=== PATIENT | female | born 1955 | race Caucasian/White ===

== ENCOUNTER 2017-01-21 06:58 | Day surgery (SDC) | payer BC ==
[2017-01-21 07:52] VITALS: BMI 23.9
[2017-01-21] MEDS ORDERED: PROPOFOL 20 ML ONE ×3 (07:59)
[2017-01-21] MEDS ORDERED: LIDOCAINE HCL 2% (20ML MULTI-DOSE VIAL) NR ONE (07:59)
[2017-01-21 09:12] VITALS: TEMP 97.9
[2017-01-21 10:00] VITALS: BP 151/68; PULSE 67
--- NOTE | 2017-01-22 13:30 | PATH ---
Surgical Pathology Report Patient Name: ALFREDO GROVER [facility]. Rec. #: [id number] /Age/Gender: 1955 (Age: 61) / F Account: [id number] Location: [facility]-ENDOSCOPY Taken: 01/21/2017 Received: 01/21/2017 Reported: 01/22/2017 Physicians: Philip Card M.D. Specimen(s) Received A: BX BILROTH II ANASTOMOSIS SITE B: BX AFFERENT ULCERATION C: BX GASTRIC POUCH D: POLYP DESCENDING COLON E: BX PROXIMAL TRANSVERSE COLON POLYPS F: BX DISTAL TRANSVERSE COLON POLYP G: SIGMOID COLON POLYPS H: BX RECTAL POLYPS Clinical History History of polyp, epigastric pain Gastric ulcer, Billroth II anastomosis ulcer, bowel reflux gastritis, multiple colon polyps, diverticulosis, patent colonic anastomosis Final Diagnosis A. BILROTH II ANASTOMOSIS SITE, BIOPSY: BENIGN GASTRIC MUCOSA WITH MILD CHRONIC GASTRITIS AND REACTIVE GASTROPATHY-TYPE CHANGES. NEGATIVE FOR DYSPLASIA. IMMUNOSTAIN FOR H. PYLORI IS NEGATIVE FOR ORGANISMS. B. AFFERENT ULCERATION, BIOPSY: BENIGN SMALL BOWEL MUCOSA WITH CHRONIC INFLAMMATION AND FOCAL SURFACE ULCERATION. NEGATIVE FOR DYSPLASIA. NO HISTOLOGIC EVIDENCE OF GLUTEN SENSITIVE ENTEROPATHY (CELIAC DISEASE). C. GASTRIC POUCH, BIOPSY: GASTRIC OXYNTIC MUCOSA WITH MILD CHRONIC GASTRITIS. IMMUNOSTAIN FOR H. PYLORI IS NEGATIVE FOR ORGANISMS. D. COLON, DESCENDING, POLYP, POLYPECTOMY: SESSILE SERRATED ADENOMA WITH CAUTERY ARTIFACT. E. COLON, PROXIMAL TRANSVERSE, POLYPS, BIOPSY: FRAGMENTS OF TUBULAR ADENOMAS. F. COLON, DISTAL TRANSVERSE, POLYP, BIOPSY: TUBULAR ADENOMA. G. COLON, SIGMOID, POLYPS, BIOPSY AND POLYPECTOMY: HYPERPLASTIC POLYPS. H. RECTUM, POLYP, BIOPSY: HYPERPLASTIC POLYP. Electronically Signed Sourav Soto M.D. Gross Description A. Received in formalin, labeled "biopsy Billroth 2 anastomosis site" are 6 collado, irregular portions of soft tissue ranging from 0.1-0.4 cm in greatest dimension. The specimens are submitted in toto in one cassette. B. Received in formalin, labeled "biopsy afferent ulceration" is a collado, irregular portion of soft tissue measuring 0.3 cm in greatest dimension. The specimen is submitted in toto in one cassette. C. Received in formalin, labeled "biopsy gastric pouch" is a collado, irregular portion of soft tissue measuring 0.3 cm in greatest dimension. The specimen is submitted in toto in one cassette. D. Received in formalin, labeled "descending colon polyp" is a collado, polypoid portion of soft tissue measuring 0.5 cm in greatest dimension. The specimen is submitted in toto in one cassette. E. Received in formalin, labeled "biopsy proximal transverse colon polyp" are 2 collado, irregular portions of soft tissue averaging 0.3 cm in greatest dimension. The specimens are submitted in toto in one cassette. F. Received in formalin, labeled "biopsy distal transverse colon polyp" are 2 collado, irregular portions of soft tissue measuring 0.2 and 0.3 cm in greatest dimension. The specimens are submitted in toto in one cassette. G. Received in formalin, labeled "sigmoid colon polyps" are 6 collado, irregular portions of soft tissue ranging from 0.1-0.4 cm in greatest dimension. The specimens are submitted in toto in one cassette. H. Received in formalin, labeled "biopsy rectal polyps" is a collado, irregular portion of soft tissue measuring 0.3 cm in greatest dimension. The specimen is submitted in toto in one cassette. 01/21/2017 [facility]01/21/2017
== END 2017-01-21 10:05 | disposition home or self-care (01) ==
LOC: JASU-ENDO 06:58
PROVIDERS: ATTEND Internal Medicine Gastroenterology
PROC: 0DBN8ZX Excision of Sigmoid Colon, Via Natural or Artificial Opening Endoscopic, Diagnostic (ICD-10-PCS; 2017-01-21)
PROC: 0DBL8ZX Excision of Transverse Colon, Via Natural or Artificial Opening Endoscopic, Diagnostic (ICD-10-PCS; 2017-01-21)
PROC: 0DBP8ZX Excision of Rectum, Via Natural or Artificial Opening Endoscopic, Diagnostic (ICD-10-PCS; 2017-01-21)
PROC: 0DB68ZX Excision of Stomach, Via Natural or Artificial Opening Endoscopic, Diagnostic (ICD-10-PCS; 2017-01-21)
PROC: 0DBM8ZX Excision of Descending Colon, Via Natural or Artificial Opening Endoscopic, Diagnostic (ICD-10-PCS; principal; 2017-01-21 08:00)
DX: Z12.11 Encounter for screening for malignant neoplasm of colon (principal); Z86.010 Personal history of colon polyps; R10.13 Epigastric pain; D12.4 Benign neoplasm of descending colon; D12.3 Benign neoplasm of transverse colon; D12.5 Benign neoplasm of sigmoid colon; K62.1 Rectal polyp; K57.30 Diverticulosis of large intestine without perforation or abscess without bleeding; Z98.0 Intestinal bypass and anastomosis status; K25.9 Gastric ulcer, unspecified as acute or chronic, without hemorrhage or perforation; K29.70 Gastritis, unspecified, without bleeding
CPT/HCPCS: 88305-TC; 88342-TC

== ENCOUNTER 2020-02-22 10:20 | Day surgery (SDC) | payer OTHER, BC ==
--- NOTE | 2020-02-07 09:27 | HP ---
DATE OF ADMISSION: 02/29/2020 HISTORY: This is a 64-year-old woman who over the past couple years has noticed an enlarging soft tissue mass involving the right upper back. She has no symptoms other than the mere presence of the mass itself that bothers her. Nonetheless, she presents at this time for excision of the soft tissue mass. PAST MEDICAL HISTORY: Significant for GERD. No history of heart disease, hypertension, diabetes, respiratory, renal or hepatic insufficiency. PAST SURGICAL HISTORY: Significant for back surgery. ALLERGIES: No known medication allergies. CURRENT MEDICATIONS: Amlodipine, Zoloft, baby aspirin. SOCIAL HISTORY: Positive for tobacco/not quantified. Occasional alcohol/not quantified. FAMILY HISTORY: Nil. REVIEW OF SYSTEMS: Nil otherwise. PHYSICAL EXAMINATION: On examination the patient has a 5 x 5 cm soft tissue mass overlying the upper right back. The mass appears to be confined to the subcutaneous space but slightly in its deeper plane. There are no satellite lesions. There is no visual lymphadenopathy. IMPRESSION: Soft tissue mass, right upper back. PLAN: Excision, soft tissue mass, right upper back. Indications, alternatives and possible complications were reviewed. Consent obtained. The patient will be seen preoperatively by Dr. Chavez. Please refer to his notes for those medical details. BANDAR OCONNOR M.D. MATTHEW/[id number] CC: José Chavez MD MTDD
[2020-02-15 10:46] VITALS: BMI 28.1
[2020-02-22] MEDS ORDERED: MIDAZOLAM HCL 2 MG/2 ML SINGLE DOSE VIAL ONE ×2 (12:20→12:47)
[2020-02-22] MEDS ORDERED: LIDOCAINE 1%/EPI 1:100000 (20 ML MULTI DOSE VIAL) ONE ×2 (12:27→12:39)
[2020-02-22] MEDS ORDERED: LIDOCAINE 1%/EPI 1:100000 (50 ML MULTI DOSE VIAL) INF ONE (12:53)
[2020-02-22 13:30] VITALS: BP 130/75; PULSE 71
[2020-02-22 14:45] VITALS: TEMP 98
--- NOTE | 2020-02-22 21:01 | OP ---
DATE OF OPERATION: 02/22/2020 PREOPERATIVE DIAGNOSIS: Soft tissue mass, right upper back. POSTOPERATIVE DIAGNOSIS: Soft tissue mass, right upper back (pathology pending). PROCEDURE: Excision subfascial soft tissue neoplasia right upper back/intermediate wound closure (5 cm). OPERATING SURGEON: John Valencia MD. ANESTHESIOLOGIST: Kenyon Silverio MD. ANESTHESIA: Local/MAC, 1% lidocaine with epinephrine. HISTORY: This is a 65-year-old woman who presents with an enlarging soft tissue mass of the right upper back. Indications, alternatives, possible complications of the intended procedure reviewed. DESCRIPTION OF PROCEDURE: With the patient in the prone position, the right upper back was prepped and draped in sterile fashion using Betadine. 1% lidocaine with epinephrine was used to infiltrate the soft tissue at the intended level of the excision along with IV sedation administered as per anesthesiologist. 5 cm transverse incision was made directly over the mass and deepened into the subcutaneous space. In the subcutaneous space, a somewhat ill defined lobulated soft tissue lipomatous neoplasia was encountered. It was freed from its attachment to the surrounding subcutaneous tissues. With meticulous dissection, the small lobular extensions were from the mid subcutaneous fat and delivered with the specimen. In the deeper plane, the specimen was noted to be emanating some of the fibers of the underlying musculature. The intermuscular portion of the mass was teased from the muscle fibers and ultimately delivered without further disruption of the fibers themselves. After delivery of the subfascial neoplasia, the wound was inspected, and adequate hemostasis insured. The fascia of the underlying musculature was closed using interrupted 3-0 chromic sutures. Subcutaneous space was closed using subcuticular 3-0 chromic sutures. Skin edges were approximated using subcuticular 3-0 chromic sutures. Benzoin and Steri-Strips applied. Dressing applied. Procedure terminated. Needle, instrument counts were correct. Estimated blood loss minimal. Specimen subfascial soft tissue neoplasia, right upper back. Patient tolerated procedure. Procedure was terminated. JOHN VALENCIA M.D. [id number] MTDD
--- NOTE | 2020-02-24 17:27 | PATH ---
Surgical Pathology Report Patient Name: ALFREDO GROVER [facility]. Rec. #: [id number] /Age/Gender: 1955 (Age: 65) / F Account: [id number] Location: [facility] AMBULATORY Taken: 02/22/2020 Received: 02/22/2020 Reported: 02/24/2020 Physicians: John Valencia M.D. Specimen(s) Received RIGHT UPPER BACK SOFT TISSUE MASS/LIPOMA Clinical History Benign neoplasm of connective and other soft tissue Final Diagnosis SOFT TISSUE MASS/LIPOMA, UPPER BACK, RIGHT, EXCISION: MATURE FIBROADIPOSE TISSUE CONSISTENT WITH LIPOMA. Electronically Signed Edwige Pedro M.D. Gross Description Received in formalin labeled "soft tissue mass/lipoma right upper back" is a piece of yellow, lobulated, fibroadipose tissue measuring 5.5 x 4 x 1 cm. Cut section is yellow and homogenous. No areas of hemorrhage or necrosis identified. Cutter Out sections are submitted in one cassette. GALILEA/02/23/2020 leeroy/02/23/2020
== END 2020-02-22 14:15 | disposition home or self-care (01) ==
LOC: FASU 10:20
PROVIDERS: ATTEND Surgery
PROC: 0KBF0ZZ Excision of Right Trunk Muscle, Open Approach (ICD-10-PCS; principal; 2020-02-22 12:50)
DX: D21.6 Benign neoplasm of connective and other soft tissue of trunk, unspecified (principal)
CPT/HCPCS: 88304-TC; 94760

== ENCOUNTER 2023-03-15 17:11 | Inpatient (IN) | payer OTHER, BC ==
[2023-03-15] MEDS ORDERED: PANTOPRAZOLE SODIUM 40 MG VIAL IVPUSH ONE (20:09)
[2023-03-15] MEDS ORDERED: LACTATED RINGERS SOLUTION 1000 ML INFUS.BAG IV ONE ×2 (20:15→22:30)
[2023-03-15 20:40] LABS: BASO % 0.5 % (0-2.0); EOS % 0.4 % (0-4.5); HEMATOCRIT 31.5 % (32.4-45.2); HEMOGLOBIN 10.6 GM/dL (10.7-15.3); LYMPH % 24.2 % (8-40); MCH 32.2 pg (25.7-33.7); MCHC 33.7 g/dl (32.0-36.0); MEAN CELL VOLUME 95.3 fl (80-96); MEAN PLT VOLUME 9.7 fl (7.5-11.1); MONO % 6.9 % (3.8-10.2); PLATELET COUNT 235 10^3/uL (134-434); RBC 3.31 M/mm3 (3.60-5.2); RDW 13.1 % (11.6-15.6)
[2023-03-15 20:46] LABS: INR 0.98 (0.83-1.09); PROTHROMBIN TIME (PATIENT) 11.4 SEC (9.7-13.0)
[2023-03-15 20:49] LABS: ACTIVATED PTT 25.7 SECONDS (25.2-36.5)
[2023-03-15 21:00] LABS: POTASSIUM 4.3 mmol/L (3.5-5.1)
[2023-03-15 21:02] LABS: CALCIUM 8.2 mg/dL (8.5-10.1)
[2023-03-15 21:03] LABS: ALBUMIN 3.6 g/dl (3.4-5.0)
[2023-03-15] MEDS ORDERED: PANTOPRAZOLE SODIUM 40 MG VIAL ONE (21:05)
[2023-03-15 21:06] LABS: CREATININE 0.5 mg/dL (0.55-1.3)
[2023-03-15 21:07] LABS: BILIRUBIN,TOTAL 0.4 mg/dL (0.2-1)
[2023-03-15 21:39] LABS: EPI CELLS 28 /uL (0-25.1); HYALINE CASTS 0 /uL (0-3.1); PH,URINE 5.5 (5.0-8.0); URINE APPEARANCE CLEAR; URINE BACTERIA 4275 /uL (0-1359); URINE BILIRUBIN NEGATIVE (NEGATIVE); URINE COLOR YELLOW; URINE GLUCOSE (UA) NEGATIVE (NEGATIVE); URINE KETONE TRACE (NEGATIVE); URINE LEUK ESTERASE 1+ (NEGATIVE); URINE NITRITE POSITIVE (NEGATIVE); URINE PROTEIN NEGATIVE (NEGATIVE); URINE RBC 8 /uL (0-23.9); URINE UROBILINOGEN 0.2 mg/dL (0.2-1.0); URINE WBC 46 /uL (0-25.8)
[2023-03-15] MEDS ORDERED: LIDOCAINE 5% TOPICAL PATCH TP ONE (23:29)
[2023-03-16] MEDS ORDERED: SODIUM CHLORIDE 1,000 ML IV STA (00:01)
[2023-03-16] MEDS ORDERED: CEFTRIAXONE 1 GM/50 ML BAG ONE ×2 (01:09→10:31)
[2023-03-16] MEDS: PANTOPRAZOLE SODIUM 80 MG in SODIUM CHLORIDE 100 ML IVPB SCH ×2 (01:38→18:22)
[2023-03-16] MEDS: SODIUM CHLORIDE 1,000 ML IV SCH ×2 (01:39→10:55)
[2023-03-16] MEDS ORDERED: LIDOCAINE 5% TOPICAL PATCH ONE (01:41)
[2023-03-16 08:03] LABS: HEMATOCRIT 26.2 % (32.4-45.2); HEMOGLOBIN 8.7 GM/dL (10.7-15.3); MCH 31.9 pg (25.7-33.7); MCHC 33.2 g/dl (32.0-36.0); MEAN CELL VOLUME 96.3 fl (80-96); MEAN PLT VOLUME 9.4 fl (7.5-11.1); PLATELET COUNT 195 10^3/uL (134-434); RBC 2.72 M/mm3 (3.60-5.2); RDW 13.5 % (11.6-15.6); WHITE BLOOD COUNT 4.2 K/mm3 (4.0-10.0)
[2023-03-16 08:28] LABS: POTASSIUM 4.1 mmol/L (3.5-5.1)
[2023-03-16 08:32] LABS: BLOOD UREA NITROGEN 17.8 mg/dL (7-18)
[2023-03-16 08:36] LABS: CALCIUM 7.6 mg/dL (8.5-10.1)
[2023-03-16 08:37] LABS: MAGNESIUM 2.4 mg/dL (1.8-2.4)
[2023-03-16 08:38] LABS: TOT PROT 5.1 g/dl (6.4-8.2)
[2023-03-16 08:39] LABS: CREATININE 0.5 mg/dL (0.55-1.3); PHOSPHOROUS 3.4 mg/dL (2.5-4.9)
[2023-03-16 08:40] LABS: BILIRUBIN,TOTAL 0.4 mg/dL (0.2-1)
[2023-03-16] MEDS ORDERED: SERTRALINE HCL 50 MG TABLET (FP) ONE (10:30)
[2023-03-16] MEDS: CEFTRIAXONE 1 GM in DEXTROSE 5%-WATER - 50 ML IVPB SCH (10:55)
[2023-03-16] MEDS: SERTRALINE HCL 50 MG TABLET (FP) PO SCH ×2 (10:55)
[2023-03-16] MEDS: PANTOPRAZOLE 40 MG TABLET PO SCH (13:11)
[2023-03-16 13:33] VITALS: BMI 28.5
[2023-03-16 15:46] LABS: BASO % 0.8 % (0-2.0); EOS % 1.9 % (0-4.5); HEMATOCRIT 25.4 % (32.4-45.2); HEMOGLOBIN 8.3 GM/dL (10.7-15.3); LYMPH % 36.1 % (8-40); MCH 31.6 pg (25.7-33.7); MCHC 32.7 g/dl (32.0-36.0); MEAN CELL VOLUME 96.7 fl (80-96); MONO % 10.6 % (3.8-10.2); NEUT % 50.6 % (42.8-82.8); PLATELET COUNT 180 10^3/uL (134-434); RBC 2.63 M/mm3 (3.60-5.2); RDW 13.4 % (11.6-15.6); WHITE BLOOD COUNT 4.1 K/mm3 (4.0-10.0)
[2023-03-16] MEDS ORDERED: BISACODYL 5 MG TABLET.DR (FP) PO ONE ×2 (16:00→18:30)
[2023-03-16] MEDS ORDERED: PEG 3350/NA SULF BICARB CL/KCL 4000 ML SOLN.RECON PO ONE (17:00)
[2023-03-16] MEDS ORDERED: POLYETHYLENE GLYCOL 3350 255 GM BTL PO ONE (19:15)
[2023-03-16] MEDS ORDERED: MELATONIN 5 MG TABLETS PO ONE (19:18)
[2023-03-16] MEDS ORDERED: SUCRALFATE 1 GM/10 ML UNIT DOSE CUPS PO SCH (22:00)
[2023-03-16] MEDS: ROSUVASTATIN CA 40 MG TABLET PO SCH (23:27)
[2023-03-17] MEDS ORDERED: SUCRALFATE 1 GM/10 ML UNIT DOSE CUPS PO SCH (07:23)
[2023-03-17 07:52] LABS: EOS % 3.1 % (0-4.5); HEMATOCRIT 26.4 % (32.4-45.2); HEMOGLOBIN 8.9 GM/dL (10.7-15.3); LYMPH % 31.7 % (8-40); MCH 32.6 pg (25.7-33.7); MCHC 33.6 g/dl (32.0-36.0); MEAN PLT VOLUME 9.1 fl (7.5-11.1); MONO % 12.7 % (3.8-10.2); NEUT % 51.5 % (42.8-82.8); PLATELET COUNT 182 10^3/uL (134-434); RBC 2.72 M/mm3 (3.60-5.2); RDW 13.4 % (11.6-15.6); WHITE BLOOD COUNT 4.2 K/mm3 (4.0-10.0)
[2023-03-17 08:08] LABS: POTASSIUM 3.9 mmol/L (3.5-5.1)
[2023-03-17 08:24] LABS: BLOOD UREA NITROGEN 8.7 mg/dL (7-18)
[2023-03-17 08:27] LABS: INR 0.97 (0.83-1.09); PROTHROMBIN TIME (PATIENT) 11.3 SEC (9.7-13.0)
[2023-03-17 08:29] LABS: CREATININE 0.5 mg/dL (0.55-1.3)
[2023-03-17] MEDS: SUCRALFATE 1 GM/10 ML UNIT DOSE CUPS PO SCH ×2 (09:52→16:28)
[2023-03-17] MEDS: SODIUM CHLORIDE 1,000 ML IV SCH (09:52)
[2023-03-17] MEDS: PANTOPRAZOLE 40 MG TABLET PO SCH (09:52)
[2023-03-17] MEDS: SERTRALINE HCL 50 MG TABLET (FP) PO SCH (09:52)
[2023-03-17] MEDS: CEFTRIAXONE 1 GM in DEXTROSE 5%-WATER - 50 ML IVPB SCH (09:53)
[2023-03-17] MEDS ORDERED: ASPIRIN 81 MG CHEWABLE TABLETS PO SCH (10:00)
[2023-03-17] MEDS ORDERED: DEXTROSE 5%-0.45% SALINE 1,000 ML IV SCH (12:00)
[2023-03-17] MEDS ORDERED: ALBUTEROL SO4 HFA INHALER IH PRN (13:04)
[2023-03-17] MEDS ORDERED: CYCLOBENZAPRINE HCL 10 MG TABLET (FP) PO ONE ×2 (13:15→16:15)
[2023-03-17] MEDS: PATIENT'S OWN MEDICATION (NON-FORMULARY) (Vortioxetine Hydrobromide [Trintellix] 20 MG Tab PO SCH (16:13)
[2023-03-17] MEDS: ROSUVASTATIN CA 40 MG TABLET PO SCH (21:43)
[2023-03-17] MEDS: LIDOCAINE PATCH REMOVAL MC SCH ×2 (21:47→21:49)
[2023-03-17] MEDS ORDERED: MELATONIN 5 MG TABLETS PO ONE (21:49)
[2023-03-18] MEDS: SUCRALFATE 1 GM/10 ML UNIT DOSE CUPS PO SCH (06:41)
[2023-03-18 08:47] LABS: BASO % 0.5 % (0-2.0); EOS % 1.9 % (0-4.5); HEMATOCRIT 25.2 % (32.4-45.2); HEMOGLOBIN 8.4 GM/dL (10.7-15.3); LYMPH % 22.6 % (8-40); MCH 32.3 pg (25.7-33.7); MCHC 33.3 g/dl (32.0-36.0); MEAN CELL VOLUME 97.2 fl (80-96); MEAN PLT VOLUME 9.4 fl (7.5-11.1); MONO % 7.8 % (3.8-10.2); NEUT % 67.2 % (42.8-82.8); PLATELET COUNT 181 10^3/uL (134-434); RBC 2.59 M/mm3 (3.60-5.2); RDW 13.2 % (11.6-15.6); WHITE BLOOD COUNT 5.8 K/mm3 (4.0-10.0)
[2023-03-18] MEDS: CEFTRIAXONE 1 GM in DEXTROSE 5%-WATER - 50 ML IVPB SCH (09:56)
[2023-03-18] MEDS: PATIENT'S OWN MEDICATION (NON-FORMULARY) (Vortioxetine Hydrobromide [Trintellix] 20 MG Tab PO SCH (09:57)
[2023-03-18] MEDS ORDERED: PANTOPRAZOLE 40 MG TABLET PO SCH (10:00)
[2023-03-18 10:53] VITALS: RESP 18
[2023-03-18 11:05] LABS: POTASSIUM 4.1 mmol/L (3.5-5.1)
[2023-03-18 11:38] LABS: ALBUMIN 2.8 g/dl (3.4-5.0); BLOOD UREA NITROGEN 9.9 mg/dL (7-18); CALCIUM 7.9 mg/dL (8.5-10.1)
[2023-03-18 11:41] LABS: CREATININE 0.5 mg/dL (0.55-1.3)
[2023-03-18 11:43] LABS: BILIRUBIN,TOTAL 0.1 mg/dL (0.2-1)
[2023-03-18 11:45] LABS: TOT PROT 4.9 g/dl (6.4-8.2)
[2023-03-18 12:40] VITALS: BP 128/49; PULSE 77; TEMP 98.8
[2023-03-18 13:19] LABS: IRON SERUM 21 ug/dL (50-175)
[2023-03-18 13:21] LABS: TOTAL IRON BINDING CAPACITY 276 ug/dL (250-450)
[2023-03-18] MEDS ORDERED: CYCLOBENZAPRINE HCL 10 MG TABLET (FP) PO SCH ×2 (21:00→22:00)
[2023-03-18] MEDS ORDERED: SERTRALINE HCL 50 MG TABLET (FP) PO SCH (22:00)
== END 2023-03-18 12:35 | disposition home or self-care (01) | DRG 381 ==
LOC: JER 17:11 → JERBED 21:58 → J4W 03-16 12:38 → OBSVTOIN 03-16 14:45
PROVIDERS: ADMIT Internal Medicine; ATTEND Internal Medicine
PROC: 0D978ZX Drainage of Stomach, Pylorus, Via Natural or Artificial Opening Endoscopic, Diagnostic (ICD-10-PCS; 2023-03-16)
PROC: 0DBL8ZZ Excision of Transverse Colon, Via Natural or Artificial Opening Endoscopic (ICD-10-PCS; 2023-03-17)
PROC: 0DBP8ZZ Excision of Rectum, Via Natural or Artificial Opening Endoscopic (ICD-10-PCS; principal; 2023-03-17 14:15)
DX: K28.3 Acute gastrojejunal ulcer without hemorrhage or perforation (principal); D62 Acute posthemorrhagic anemia; N39.0 Urinary tract infection, site not specified; K27.9 Peptic ulcer, site unspecified, unspecified as acute or chronic, without hemorrhage or perforation; I10 Essential (primary) hypertension; J44.9 Chronic obstructive pulmonary disease, unspecified; F32.A Depression, unspecified; E78.5 Hyperlipidemia, unspecified; K21.9 Gastro-esophageal reflux disease without esophagitis; F17.200 Nicotine dependence, unspecified, uncomplicated; F41.8 Other specified anxiety disorders; G43.809 Other migraine, not intractable, without status migrainosus; K57.90 Diverticulosis of intestine, part unspecified, without perforation or abscess without bleeding; D12.3 Benign neoplasm of transverse colon; D12.5 Benign neoplasm of sigmoid colon; D12.8 Benign neoplasm of rectum
CPT/HCPCS: 36415; 71045-TC-FY; 80048; 80053; 81003; 82272; 82728; 83540; 83550; 83735; 84100; 84484; 85025; 85027; 85045; 85610; 85730; 86140; 86850; 86900; 86901; 86922; 87086; 87186; 88305-TC; 88342-TC; 93005; 93010; 97116-GP; 97161-GP; 99285-25; G0378

== ENCOUNTER 2024-04-11 05:01 | Day surgery (SDC) | payer OTHER, BC ==
[2024-04-01 14:54] VITALS: BMI 28.3
[2024-04-11 11:16] VITALS: RESP 18; TEMP 97.3
[2024-04-11 11:52] VITALS: BP 163/75; PULSE 89
== END 2024-04-11 11:55 | disposition home or self-care (01) ==
LOC: JASU-ENDO 05:01
PROVIDERS: ATTEND Internal Medicine Gastroenterology
PROC: 0DBM8ZX Excision of Descending Colon, Via Natural or Artificial Opening Endoscopic, Diagnostic (ICD-10-PCS; 2024-04-11)
PROC: 0DBL8ZX Excision of Transverse Colon, Via Natural or Artificial Opening Endoscopic, Diagnostic (ICD-10-PCS; 2024-04-11)
PROC: 0DBN8ZX Excision of Sigmoid Colon, Via Natural or Artificial Opening Endoscopic, Diagnostic (ICD-10-PCS; 2024-04-11)
PROC: 0DB98ZX Excision of Duodenum, Via Natural or Artificial Opening Endoscopic, Diagnostic (ICD-10-PCS; 2024-04-11)
PROC: 0DB68ZX Excision of Stomach, Via Natural or Artificial Opening Endoscopic, Diagnostic (ICD-10-PCS; 2024-04-11)
PROC: 0DBA8ZX Excision of Jejunum, Via Natural or Artificial Opening Endoscopic, Diagnostic (ICD-10-PCS; 2024-04-11)
PROC: 0DBL8ZX Excision of Transverse Colon, Via Natural or Artificial Opening Endoscopic, Diagnostic (ICD-10-PCS; principal; 2024-04-11 10:00)
DX: Z12.11 Encounter for screening for malignant neoplasm of colon (principal); D12.3 Benign neoplasm of transverse colon; K63.5 Polyp of colon; K64.8 Other hemorrhoids; K57.30 Diverticulosis of large intestine without perforation or abscess without bleeding; Z86.010 Personal history of colon polyps; K29.50 Unspecified chronic gastritis without bleeding; Z98.0 Intestinal bypass and anastomosis status; Z90.3 Acquired absence of stomach [part of]
CPT/HCPCS: 88305-TC; 88342-TC